=== PATIENT | male | born 1970 | race Caucasian/White ===

== ENCOUNTER 2017-12-26 15:41 | Emergency (ER) | payer OTHER ==
[2017-12-26] MEDS ORDERED: MORPHINE 4 MG/ML SYR ONE (16:27)
[2017-12-26] MEDS ORDERED: NA CHLORIDE 0.9% 1,000 ML ONE (16:27)
[2017-12-26] MEDS ORDERED: ONDANSETRON 4 MG/2 ML VIAL ONE (16:27)
[2017-12-26 16:41] LABS: Absolute Lymphocytes (CBC) 2.8 K/uL (0.7-4.9); Absolute Monocytes 0.9 K/uL (0.1-1.3); Absolute Neutrophil 4.2 K/uL (1.8-8.0); Basophils % 0.7 % (0-1.3); Eosinophils % 2.4 % (0-4.4); Hematocrit 47.4 % (39.6-49.0); Lymphocytes % 34.2 % (15.3-44.8); MCH 29.1 pg (27.0-35.0); MCV 84.3 fL (80-100); MPV 9.2 fL (7.6-11.3); Monocytes % 11.3 % (3.3-12.3); RBC Red Blood Cell Count 5.62 M/uL (4.33-5.43)
[2017-12-26 16:57] LABS: ALT/SGPT 40 U/L (12-78); AST/SGOT 17 U/L (15-37); Albumin 3.9 g/dL (3.4-5.0); Alkaline Phosphatase 40 U/L (45-117); BUN Blood Urea Nitrogen 14 mg/dL (7-18); Bicarbonate 25 mmol/L (21-32); Bilirubin Direct 0.1 mg/dL (0-0.2); Bilirubin Total 0.4 mg/dL (0.2-1.0); Glucose Level 83 mg/dL (74-106); Lipase 130 U/L (73-393); Potassium 3.9 mmol/L (3.5-5.1); Protein, Total 7.8 g/dL (6.4-8.2); Sodium Level 138 mmol/L (136-145)
[2017-12-26 17:33] LABS: Blood Morphology Comment NOT SEEN (NOT SEEN); Platelet Estimate ADEQ; Urine White Blood Cell Casts OK
[2017-12-26] MEDS ORDERED: MEPERIDINE HCL 25 MG/0.5 ML ONE (17:35)
--- NOTE | 2017-12-26 18:00 | RAD REPORT ---
EXAM DESCRIPTION: CTAbdomen Pelvis W Contrast - 12/26/2017 5:43 pm CLINICAL HISTORY: Abdominal pain. ABD PAIN COMPARISON: No comparisons TECHNIQUE: Biphasic CT imaging of the abdomen and pelvis was performed with 100 ml non-ionic IV cont rast. All CT scans are performed using dose optimization technique as appropriate and may include automated exposure control or mA/KV adjustment according to patient size. FINDINGS: The lung bases are clear. The liver, spleen, pancreas, adrenal glands and right kidney are within normal limits. The left kidne y contains a 7 mm upper pole cyst or caliceal diverticulum containing a calcification dependently. No bowel obstruction, free air, free fluid or abscess. Mild mucosal thickening is seen involving the left colon including the retrosigmoid colon most likely representing mild colitis. The appendix is no rmal. No evidence of significant lymphadenopathy. No suspicious bony findings. IMPRESSION: Mild descending and retrosigmoid colitis is suspected. 7 mm left renal caliceal diverticulum versus cyst as detailed.
--- NOTE | 2017-12-26 18:33 | EDPHYS ---
Physician Documentation [facility] Name: Sunday Pruitt Age: 47 yrs Sex: Male : 1970 Arrival Date: 12/26/2017 Time: 15:45 Bed External Waiting Private MD: ED Physician Arden Baumann HPI: 12/26 16:27 This 47 yrs old Male presents to ER via Wheelchair with complaints of jr8 Abdominal Pain. 16:27 The patient presents with abdominal pain in the right upper quadrant, right lower jr8 quadrant. Onset: The symptoms/episode began/occurred acutely, 2 day(s) ago, and became worse and became persistent. The symptoms do not radiate. Associated signs and symptoms: Pertinent positives: constipation, nausea. The symptoms are described as sharp. Modifying factors: The symptoms are alleviated by nothing, the symptoms are aggravated by nothing. Severity of pain: At its worst the pain was moderate in the emergency department the pain is unchanged. The patient has not experienced similar symptoms in the past. The patient has been recently seen by a physician: the patient's primary care provider. sent for further evaluation of abdominal pain . Historical: - Allergies: 16:00 PENICILLINS; sv - Home Meds: 16:00 Zantac Oral [Active]; ibuprofen 800 mg Oral tab daily [Active]; unk HTN med [Active]; sv - PMHx: 16:00 Hypertension; sv - PSHx: 16:00 left knee; Tonsillectomy; sv - Immunization history:: Adult Immunizations up to date. - Social history:: Smoking status: Patient uses tobacco products, denies chronic smoking, but will smoke occasionally, Patient uses alcohol, occasionally. - Ebola Screening: : No symptoms or risks identified at this time. ROS: 16:27 Eyes: Negative for injury, pain, redness, and discharge, ENT: Negative for injury, jr8 pain, and discharge, Neck: Negative for injury, pain, and swelling, Cardiovascular: Negative for chest pain, palpitations, and edema, Respiratory: Negative for shortness of breath, cough, wheezing, and pleuritic chest pain, Back: Negative for injury and pain, MS/Extremity: Negative for injury and deformity, Skin: Negative for injury, rash, and discoloration, Neuro: Negative for headache, weakness, numbness, tingling, and seizure. 16:27 Abdomen/GI: Positive for abdominal pain, nausea, constipation, Negative for vomiting, diarrhea, abdominal cramps, abdominal distension, anorexia, dysphagia, hematemesis, black/tarry stool, rectal pain, rectal bleeding, bowel incontinence, flatulence. Exam: 16:27 Eyes: Pupils equal round and reactive to light, extra-ocular motions intact. Lids and jr8 lashes normal. Conjunctiva and sclera are non-icteric and not injected. Cornea within normal limits. Periorbital areas with no swelling, redness, or edema. ENT: Nares patent. No nasal discharge, no septal abnormalities noted. Tympanic membranes are normal and external auditory canals are clear. Oropharynx with no redness, swelling, or masses, exudates, or evidence of obstruction, uvula midline. Mucous membranes moist. Neck: Trachea midline, no thyromegaly or masses palpated, and no cervical lymphadenopathy. Supple, full range of motion without nuchal rigidity, or vertebral point tenderness. No Meningismus. Cardiovascular: Regular rate and rhythm with a normal S1 and S2. No gallops, murmurs, or rubs. Normal PMI, no JVD. No pulse deficits. Respiratory: Lungs have equal breath sounds bilaterally, clear to auscultation and percussion. No rales, rhonchi or wheezes noted. No increased work of breathing, no retractions or nasal flaring. Back: No spinal tenderness. No costovertebral tenderness. Full range of motion. Skin: Warm, dry with normal turgor. Normal color with no rashes, no lesions, and no evidence of cellulitis. MS/ Extremity: Pulses equal, no cyanosis. Neurovascular intact. Full, normal range of motion. Neuro: Awake and alert, GCS 15, oriented to person, place, time, and situation. Cranial nerves II-XII grossly intact. Motor strength 5/5 in all extremities. Sensory grossly intact. Cerebellar exam normal. Normal gait. 16:27 Abdomen/GI: Inspection: obese Bowel sounds: active, all quadrants, Palpation: soft, in all quadrants, moderate abdominal tenderness, in the right upper quadrant and right lower quadrant, mass, is not appreciated, rebound tenderness, is not appreciated, voluntary guarding, is not appreciated, involuntary guarding, is not appreciated, no appreciated organomegaly, Indicators: McBurney's point is tender, Rosa's sign is negative, Rovsing's sign is negative, Obturator sign is negative, Psoas sign is negative, Liver: no appreciated palpable abnormalities, tenderness, is not appreciated. Vital Signs: 15:49 BP 144 / 89; Pulse 77; Resp 20; Temp 97.8; Pulse Ox 98% ; Weight 106.59 kg; Height 6 sv ft. 2 in. (187.96 cm); Pain 4/10; 16:45 BP 147 / 92; Pulse 66; Resp 16; Pulse Ox 96% on R/A; sv 16:45 Pain 2/10; sv 17:55 BP 123 / 91; Pulse 64; Resp 18; Pulse Ox 97% ; sv 19:00 BP 126 / 92; Pulse 66; Resp 16; Pulse Ox 99% ; bp 15:49 Body Mass Index 30.17 (106.59 kg, 187.96 cm) sv MDM: 15:53 Patient medically screened. jr8 18:32 Data reviewed: vital signs, nurses notes, lab test result(s), radiologic studies, CT jr8 scan, and as a result, I will discharge patient. Data interpreted: Pulse oximetry: on room air is 97 %. Interpretation: normal. Counseling: I had a detailed discussion with the patient and/or guardian regarding: the historical points, exam findings, and any diagnostic results supporting the discharge/admit diagnosis, lab results, radiology results, the need for outpatient follow up, a global safety officer, to return to the emergency department if symptoms worsen or persist or if there are any questions or concerns that arise at home. Response to treatment: the patient's symptoms have markedly improved after treatment. 12/26 15:59 Order name: Basic Metabolic Panel; Complete Time: 17:12 12/26 15:59 Order name: CBC with Diff; Complete Time: 17:36 12/26 15:59 Order name: Creatinine for Radiology; Complete Time: 16:55 12/26 15:59 Order name: Hepatic Function; Complete Time: 17:12 12/26 15:59 Order name: Lipase; Complete Time: 17:12 12/26 16:43 Order name: CBC Smear Scan; Complete Time: 17:36 EDPR 12/26 15:59 Order name: IV Saline Lock; Complete Time: 16:20 12/26 16:16 Order name: CT Abd/Pelvis - W/Contrast; Complete Time: 18:02 jr8 12/26 15:59 Order name: Labs collected and sent; Complete Time: 16:20 8 Administered Medications: 16:30 Drug: Zofran 4 mg Route: IVP; Site: right antecubital; sv 16:45 Follow up: Response: No adverse reaction sv 16:30 Drug: NS 0.9% 1000 ml Route: IV; Rate: 1000 ml; Site: right antecubital; sv 17:17 Follow up: IV SiteChange: left antecubital; IV SiteChange Reason: Infiltration sv 16:32 Drug: morphine 4 mg Route: IVP; Site: right antecubital; sv 16:45 Follow up: Pain 2/10 Adult; Response: No adverse reaction sv 17:34 Drug: Demerol 25 mg Route: IVP; Site: left antecubital; sv 19:03 Drug: Cipro 400 mg Volume: 200 ml; Route: IVPB; Infused Over: 60 mins; Site: left sg antecubital; 19:04 Drug: Flagyl 500 mg Volume: 100 ml; Route: IVPB; Rate: 200 ml/hr; Infused Over: 30 sg mins; Site: left antecubital; Disposition: 12/27 07:16 Co-signature as Attending Physician, Arden Baumann MD I agree with the assessment and walter plan of care. Disposition: 12/26/17 18:33 Discharged to Home. Impression: Colitis, Abdominal and pelvic pain. - Condition is Stable. - Discharge Instructions: Abdominal Pain, Adult, Colitis. - Prescriptions for Cipro 500 mg Oral Tablet - take 1 tablet by ORAL route every 12 hours for 10 days; 20 tablet. Flagyl 500 mg Oral Tablet - take 1 tablet by ORAL route every 6 hours for 10 days; 40 tablet. Tylenol- Codeine #3 300-30 mg Oral Tablet - take 2 tablet by ORAL route every 6 hours As needed; 30 tablet. promethazine 25 mg Oral Tablet - take 1 tablet by ORAL route every 6 hours As needed; 20 tablet. - Medication Reconciliation Form, Thank You Letter, Antibiotic Education, Prescription Opioid Use form. - Follow up: Devante Tyler MD; When: 1 week; Reason: Recheck today's complaints, Continuance of care, Re-evaluation by your physician. - Problem is new. - Symptoms have improved. Signatures: Dispatcher [employer] Olga Prince, RN José Miguel Carter, Yumiko Junior RN, RN RN aj Anderson, Corey, MD MD cha Roszak, Josh, PA PA jr8 Corrections: (The following items were deleted from the chart) 12/26 18:33 18:33 12/26/2017 18:33 Discharged to Home. Impression: Colitis. Condition is Stable. jr8 Forms are Medication Reconciliation Form, Thank You Letter, Antibiotic Education, Prescription Opioid Use. Follow up: Devante Tyler; When: 1 week; Reason: Recheck today's complaints, Continuance of care, Re-evaluation by your physician. Problem is new. Symptoms have improved. jr8 21:09 18:33 12/26/2017 18:33 Discharged to Home. Impression: Colitis; Abdominal and pelvic aj pain. Condition is Stable. Forms are Medication Reconciliation Form, Thank You Letter, Antibiotic Education, Prescription Opioid Use. Follow up: Devante Tyler; When: 1 week; Reason: Recheck today's complaints, Continuance of care, Re-evaluation by your physician. Problem is new. Symptoms have improved. jr8
--- NOTE | 2017-12-26 18:33 | ER ---
Nurse's Notes [facility] Name: Sunday Pruitt Age: 47 yrs Sex: Male : 1970 Arrival Date: 12/26/2017 Time: 15:45 Bed External Waiting Private MD: Diagnosis: Colitis;Abdominal and pelvic pain Presentation: 12/26 15:45 Presenting complaint: Patient states: sent by Dr Roman's office to r/o appy. Pt c/o sv RUQ, RLQ and mid abdominal pain. Pt hasn't had a BM x 3 days, has been taking Dulcolax. c/o nausea on Tuesday, took zofran and was relieved. Transition of care: patient was received from another setting of care (ambulatory primary care physician practice), Dr Roman. Onset of symptoms was December 23, 2017. Risk Assessment: Do you want to hurt yourself or someone else? Patient reports no desire to harm self or others. Initial Sepsis Screen: Does the patient meet any 2 criteria? No. Patient's initial sepsis screen is negative. Does the patient have a suspected source of infection? No. Patient's initial sepsis screen is negative. Care prior to arrival: None. 15:45 Method Of Arrival: Wheelchair sv 15:45 Acuity: MARILU 3 sv Triage Assessment: 15:45 General: Appears uncomfortable, well developed, Behavior is cooperative, restless. sv Pain: Complains of pain in umbilical area, right upper quadrant and right lower quadrant Pain currently is 4 out of 10 on a pain scale. Quality of pain is described as pressure, Pain began 2-3 days ago. Is continuous, Also complains of nausea. EENT: No signs and/or symptoms were reported regarding the EENT system. Neuro: Level of Consciousness is awake, alert, obeys commands, Oriented to person, place, time, situation, Moves all extremities. Full function Gait is steady, Speech is normal. Cardiovascular: Patient's skin is warm and dry. Respiratory: Respiratory effort is even, unlabored, Respiratory pattern is regular, symmetrical. GI: Abdomen is round Abdomen is tender to palpation in umbilical area, right upper quadrant and right lower quadrant Reports constipation, nausea. : No signs and/or symptoms were reported regarding the genitourinary system. Derm: Skin is pink, warm \T\ dry. Musculoskeletal: No signs and/or symptoms reported regarding the musculoskeletal system. Historical: - Allergies: 16:00 PENICILLINS; sv - Home Meds: 16:00 Zantac Oral [Active]; ibuprofen 800 mg Oral tab daily [Active]; unk HTN med [Active]; sv - PMHx: 16:00 Hypertension; sv - PSHx: 16:00 left knee; Tonsillectomy; sv - Immunization history:: Adult Immunizations up to date. - Social history:: Smoking status: Patient uses tobacco products, denies chronic smoking, but will smoke occasionally, Patient uses alcohol, occasionally. - Ebola Screening: : No symptoms or risks identified at this time. Screenin:45 Abuse screen: Denies threats or abuse. Denies injuries from another. Nutritional sv screening: No deficits noted. Tuberculosis screening: No symptoms or risk factors identified. Fall Risk None identified. Assessment: 16:30 Reassessment: Patient appears in no apparent distress at this time. No changes from sv previously documented assessment. Patient and/or family updated on plan of care and expected duration. Pain level reassessed. Patient is alert, oriented x 3, equal unlabored respirations, skin warm/dry/pink. 17:34 Reassessment: Patient appears in no apparent distress at this time. Patient and/or sv family updated on plan of care and expected duration. Pain level reassessed. Patient is alert, oriented x 3, equal unlabored respirations, skin warm/dry/pink. Patient states symptoms have not improved. 17:55 Reassessment: Patient appears in no apparent distress at this time. No changes from sv previously documented assessment. Patient and/or family updated on plan of care and expected duration. Pain level reassessed. Patient is alert, oriented x 3, equal unlabored respirations, skin warm/dry/pink. 19:00 Reassessment: RECD REPORT FROM TOM CEJA. 47YO WM P/W ABD PAIN, SENT BY PCP FOR R/O APPY. bp PT TBDC WITH DX OF COLITIS AFTER ABX INFUSION. VS STABLE ON MONITOR. 20:07 Reassessment: Patient appears in no apparent distress at this time. Patient and/or tl2 family updated on plan of care and expected duration. Pain level reassessed. Patient is alert, oriented x 3, equal unlabored respirations, skin warm/dry/pink. Pt verbalized understanding of discharge instructions, need for follow up and prescription usage. Vital Signs: 15:49 BP 144 / 89; Pulse 77; Resp 20; Temp 97.8; Pulse Ox 98% ; Weight 106.59 kg; Height 6 sv ft. 2 in. (187.96 cm); Pain 4/10; 16:45 BP 147 / 92; Pulse 66; Resp 16; Pulse Ox 96% on R/A; sv 16:45 Pain 2/10; sv 17:55 BP 123 / 91; Pulse 64; Resp 18; Pulse Ox 97% ; sv 19:00 BP 126 / 92; Pulse 66; Resp 16; Pulse Ox 99% ; bp 15:49 Body Mass Index 30.17 (106.59 kg, 187.96 cm) sv ED Course: 15:45 Patient arrived in ED. bd 15:53 Simon Faith PA is PHCP. jr8 15:53 Arden Baumann MD is Attending Physician. jr8 15:54 Olga Espinosa RN is Primary Nurse. sv 15:58 Triage completed. sv 16:01 Arm band placed on right wrist. sv 16:01 Patient has correct armband on for positive identification. Placed in gown. Bed in low sv position. Call light in reach. Pulse ox on. NIBP on. Door closed. Head of bed elevated. 16:05 Initial lab(s) drawn, by me, sent to lab. Inserted saline lock: 20 gauge in right sv antecubital area, using aseptic technique. ,using aseptic technique. done by José Miguel CEJA Blood collected. 17:18 Inserted saline lock: 20 gauge in left antecubital area, using aseptic technique. sv Flushed left antecubital with 5 ml normal saline IV discontinued, intact, bleeding controlled, No redness/swelling at site. Pressure dressing applied, to the right AC d/t infiltration. 17:[address] via wheelchair. sv 17:[address] via wheelchair. sw 17:43 CT completed. Patient tolerated procedure well. Patient moved back from CT. sw 17:43 CT Abd/Pelvis - W/Contrast In Process Unspecified. EDMS 18:32 Devante Tyler MD is Referral Physician. jr8 19:35 Primary Nurse role handed off by Olga Espinosa, BRENNA sv 20:07 No provider procedures requiring assistance completed. IV discontinued, intact, tl2 bleeding controlled, No redness/swelling at site. Pressure dressing applied. Administered Medications: 16:30 Drug: Zofran 4 mg Route: IVP; Site: right antecubital; sv 16:45 Follow up: Response: No adverse reaction sv 16:30 Drug: NS 0.9% 1000 ml Route: IV; Rate: 1000 ml; Site: right antecubital; sv 17:17 Follow up: IV SiteChange: left antecubital; IV SiteChange Reason: Infiltration sv 16:32 Drug: morphine 4 mg Route: IVP; Site: right antecubital; sv 16:45 Follow up: Pain 2/10 Adult; Response: No adverse reaction sv 17:34 Drug: Demerol 25 mg Route: IVP; Site: left antecubital; sv 19:03 Drug: Cipro 400 mg Volume: 200 ml; Route: IVPB; Infused Over: 60 mins; Site: left sg antecubital; 19:04 Drug: Flagyl 500 mg Volume: 100 ml; Route: IVPB; Rate: 200 ml/hr; Infused Over: 30 sg mins; Site: left antecubital; Outcome: 18:33 Discharge ordered by . jr8 20:07 Discharged to home ambulatory, with family. tl2 20:07 Condition: stable 20:07 Discharge instructions given to patient, family, Instructed on discharge instructions, follow up and referral plans. medication usage, Demonstrated understanding of instructions, follow-up care, medications, Prescriptions given X 4. 21:09 Patient left the ED. lyudmila Signatures: Dispatcher [employer] EDMS Caitlin Vazquez Stephanie, RN RN sv Gay, Steven, RN RN sg Myers, Amanda, RN RN aj Roszak, Josh, PA PA jr8 Jayna Corona Taylor, RN RN tl2 Migel Pollard RN BRENNA bp
[2017-12-26] MEDS ORDERED: METRONIDAZOLE 500mg IVPB 500 MG/100 ML BAG IV ONE (18:58)
[2017-12-26] MEDS ORDERED: CIPROFLOXACIN 400mg IV 400 MG/200 ML BAG IV ONE (18:58)
== END 2017-12-26 21:09 | disposition home or self-care (01) ==
LOC: ER 15:41
DX: K52.9 Noninfective gastroenteritis and colitis, unspecified (principal); I10 Essential (primary) hypertension; Z72.0 Tobacco use; Z88.0 Allergy status to penicillin
CPT/HCPCS: 36415; 74177; 80048; 80076; 83690; 85025; 99284; J0744; J2175; J2405; J7030; Q9967

== ENCOUNTER 2017-12-28 04:31 | Inpatient (IN) | payer OTHER, SELFPAY ==
[2017-12-28] MEDS ORDERED: NA CHLORIDE 0.9% 1,000 ML ONE (04:53)
[2017-12-28] MEDS ORDERED: ONDANSETRON 4 MG/2 ML VIAL ONE (04:54)
[2017-12-28] MEDS ORDERED: KETOROLAC 30 MG/ML INJ ONE (04:55)
[2017-12-28] MEDS ORDERED: MORPHINE 4 MG/ML SYR ONE (04:55)
[2017-12-28 05:10] LABS: Absolute Lymphocytes (CBC) 1.8 K/uL (0.7-4.9); Absolute Monocytes 0.6 K/uL (0.1-1.3); Absolute Neutrophil 4.1 K/uL (1.8-8.0); Basophils % 1.1 % (0-1.3); Eosinophils % 3.5 % (0-4.4); Hematocrit 43.3 % (39.6-49.0); Lymphocytes % 26.1 % (15.3-44.8); MCH 29.6 pg (27.0-35.0); MCV 83.5 fL (80-100); MPV 9.1 fL (7.6-11.3); Monocytes % 8.7 % (3.3-12.3); RBC Red Blood Cell Count 5.18 M/uL (4.33-5.43)
[2017-12-28 05:51] LABS: ALT/SGPT 35 U/L (12-78); AST/SGOT 16 U/L (15-37); Albumin 3.2 g/dL (3.4-5.0); Alkaline Phosphatase 35 U/L (45-117); BUN Blood Urea Nitrogen 18 mg/dL (7-18); Bicarbonate 25 mmol/L (21-32); Bilirubin Direct 0.1 mg/dL (0-0.2); Bilirubin Total 0.4 mg/dL (0.2-1.0); Glucose Level 96 mg/dL (74-106); Lipase 173 U/L (73-393); Potassium 3.8 mmol/L (3.5-5.1); Protein, Total 6.5 g/dL (6.4-8.2); Sodium Level 140 mmol/L (136-145)
[2017-12-28] MEDS ORDERED: FENTANYL CITR 100 MCG/2 ML ONE (06:34)
[2017-12-28 06:41] LABS: Urine Blood NEGATIVE (NEG); Urine Glucose NEGATIVE (NEG); Urine Protein 1+ (NEG); Urine Specific Gravity 1.025 (1.005-1.030); Urine pH 6.5 (5.0-7.0)
[2017-12-28] MEDS ORDERED: METRONIDAZOLE 500mg IVPB 500 MG/100 ML BAG IV ONE (06:41)
[2017-12-28] MEDS ORDERED: Levofloxacin500mg IV 500 MG/100 ML BAG IV ONE (06:41)
--- NOTE | 2017-12-28 06:45 | ER ---
Nurse's Notes [facility] Name: Sunday Pruitt Age: 47 yrs Sex: Male : 1970 Arrival Date: 12/28/2017 Time: 04:32 Bed 15 Private MD: Migel Roman Diagnosis: Acute Abdominal Pain;Acute Proctocolitis Presentation: 12/28 04:42 Presenting complaint: Patient states: I was here on Tuesday with abdominal pain and CT ao shows colitis. This morning I woke up with stabbing pain that is worst. Patient denies having BM yesterday. Transition of care: patient was not received from another setting of care. Onset of symptoms was December 28, 2017 at 04:00. Risk Assessment: Do you want to hurt yourself or someone else? Patient reports no desire to harm self or others. Initial Sepsis Screen: Does the patient meet any 2 criteria? No. Patient's initial sepsis screen is negative. Does the patient have a suspected source of infection? No. Patient's initial sepsis screen is negative. Care prior to arrival: None. 04:42 Method Of Arrival: Ambulatory ao 04:42 Acuity: MARILU 3 ao Historical: - Allergies: 04:47 PENICILLINS; ao - Home Meds: 04:47 ibuprofen 800 mg Oral tab daily [Active]; unk HTN med [Active]; Zantac Oral [Active]; ao Flagyl Oral [Active]; Cipro Oral [Active]; Tylenol #3 Oral [Active]; Phenergan Oral [Active]; - PMHx: 04:47 Hypertension; ao - PSHx: 04:47 Knee surgery; ao - Immunization history:: Adult Immunizations up to date. - Social history:: Smoking status: Patient uses tobacco products, smokes one-half pack cigarettes per day, Patient uses alcohol, occasionally. Patient/guardian denies using street drugs. - Ebola Screening: : Patient negative for fever greater than or equal to 101.5 degrees Fahrenheit, and additional compatible Ebola Virus Disease symptoms Patient denies exposure to infectious person Patient denies travel to an Ebola-affected area in the 21 days before illness onset. - Family history:: not pertinent. - Hospitalizations: : No recent hospitalization is reported. Screenin:57 Abuse screen: Denies threats or abuse. Nutritional screening: No deficits noted. tl2 Tuberculosis screening: No symptoms or risk factors identified. Fall Risk None identified. Assessment: 05:00 General: Appears in no apparent distress. uncomfortable, Behavior is calm, cooperative, ao appropriate for age. Pain: Complains of pain in abdomen Pain currently is 10 out of 10 on a pain scale. Neuro: Level of Consciousness is awake, alert, obeys commands, Oriented to person, place, time, situation, Appropriate for age Moves all extremities. Full function Speech is normal, Facial symmetry appears normal. Cardiovascular: Capillary refill < 3 seconds Patient's skin is warm and dry. Respiratory: Airway is patent Respiratory effort is even, unlabored, Respiratory pattern is regular, symmetrical. GI: Bowel sounds present X 4 quads. Abd is soft and non tender X 4 quads. Reports lower abdominal pain, Pain is 10 out of 10 on a pain scale. : No signs and/or symptoms were reported regarding the genitourinary system. EENT: No signs and/or symptoms were reported regarding the EENT system. Derm: Skin is intact, Skin is pink, warm \\T\\ dry. normal, Skin temperature is warm. Musculoskeletal: Circulation, motion, and sensation intact. Range of motion:. 06:03 Reassessment: Patient appears in no apparent distress at this time. Patient and/or ao family updated on plan of care and expected duration. Pain level reassessed. Patient is alert, oriented x 3, equal unlabored respirations, skin warm/dry/pink. Patient back from CT. 06:45 Reassessment: [phone] August patient's . ao 08:03 Reassessment: Patient appears in no apparent distress at this time. Patient and/or ph family updated on plan of care and expected duration. Pain level reassessed. Patient is alert, oriented x 3, equal unlabored respirations, skin warm/dry/pink. Pt resting quietly, states, "The pain is finally under control." Denies nausea, awaiting room assignment. 09:12 Reassessment: Patient appears in no apparent distress at this time. Patient and/or ph family updated on plan of care and expected duration. Pain level reassessed. Pt asleeep, respirations even and unlabored, report called to Solange CEJA, pt waiting to be taken to 2nd floor. Vital Signs: 04:44 BP 126 / 75; Pulse 61; Resp 22; Temp 97.1(TE); Pulse Ox 100% on R/A; Weight 106.59 kg ao (R); Height 6 ft. 2 in. (187.96 cm) (R); Pain 10/10; 06:05 BP 116 / 76; Pulse 62; Resp 16; Pulse Ox 100% on R/A; ao 08:05 BP 107 / 74; Pulse 49; Resp 18; Pulse Ox 98% on R/A; ph 09:12 BP 107 / 74; Pulse 47; Resp 18; Pulse Ox 98% on R/A; ph 04:44 Body Mass Index 30.17 (106.59 kg, 187.96 cm) ao ED Course: 04:32 Patient arrived in ED. ds1 04:32 Migel Roman MD is Private Physician. ds1 04:41 Vince Trevino, BRENNA is Primary Nurse. ao 04:44 Triage completed. ao 04:44 Devante Lopez MD is Attending Physician. wa 04:47 Arm band placed on right wrist. Patient placed in an exam room, on a stretcher, on ao pulse oximetry, Patient notified of wait time. 04:56 Inserted saline lock: 20 gauge in left antecubital area, using aseptic technique. Blood tl2 collected. placed by dominga Lehman. 04:57 Patient has correct armband on for positive identification. Bed in low position. Call tl2 light in reach. Side rails up X 1. Adult w/ patient. 05:[address] via wheelchair. kw1 05:47 CT Abd/Pelvis - W/Contrast In Process Unspecified. EDMS 05:51 CT completed. Patient tolerated procedure well. Patient moved back from CT. kw1 06:43 Rafaela Holm MD is Hospitalizing Provider. wa 07:14 Report given to BRENNA Rivera. ao 07:22 Nicole Guzman RN is Primary Nurse. ph 08:47 No provider procedures requiring assistance completed. Patient admitted, IV remains in ph place. Administered Medications: 04:55 Drug: NS 0.9% 1000 ml Route: IV; Rate: 1 bolus; Site: left antecubital; tl2 06:33 Follow up: IV Status: Completed infusion ao 04:55 Drug: Zofran 4 mg Route: IVP; Site: left antecubital; tl2 06:33 Follow up: Response: No adverse reaction ao 04:55 Drug: TORadol 30 mg Route: IVP; Site: left antecubital; tl2 06:34 Follow up: Response: No adverse reaction ao 04:56 Drug: morphine 4 mg Route: IVP; Site: left antecubital; tl2 06:34 Follow up: Response: No adverse reaction ao 06:33 Drug: fentaNYL (PF) 75 mcg Route: IVP; Site: left antecubital; ao 07:15 Follow up: Response: No adverse reaction; Pain is decreased ph 06:42 Drug: LevaQUIN 500 mg Volume: 100 ml; Route: IVPB; Infused Over: 60 mins; Site: left ao antecubital; 08:00 Follow up: Response: No adverse reaction; IV Status: Completed infusion ph 06:42 Drug: Flagyl 500 mg Volume: 100 ml; Route: IVPB; Rate: 200 ml/hr; Infused Over: 30 ao mins; Site: left antecubital; 08:00 Follow up: Response: No adverse reaction; IV Status: Completed infusion ph Outcome: 06:44 Decision to Hospitalize by Provider. wa 09:13 Admitted to Med/surg accompanied by tech, via wheelchair, room 214, with chart, Report ph called to BRENNA Narvaez 09:13 Condition: good 09:23 Patient left the ED. ph Signatures: Dispatcher [employer] [facility] Vaz, Jennifer ds1 Nicole Guzman RN RN ph Ortiz, Alex, RN RN ao Knox, Taylor, RN RN tl2 Devante Lopez MD MD wa Wilhelm, Kimberly kw1 Corrections: (The following items were deleted from the chart) 06:05 06:00 General: Appears in no apparent distress. uncomfortable, Behavior is calm, ao cooperative, appropriate for age, ao 06:05 06:00 Pain: Complains of pain in abdomen Pain currently is 10 out of 10 on a pain ao scale. ao 06:05 06:00 Neuro: Level of Consciousness is awake, alert, obeys commands, Oriented to ao person, place, time, situation, Appropriate for age Moves all extremities. Full function Speech is normal, Facial symmetry appears normal, ao 06:05 06:00 Cardiovascular: Capillary refill < 3 seconds Patient's skin is warm and dry. ao ao 06:05 06:00 Respiratory: Airway is patent Respiratory effort is even, unlabored, Respiratory ao pattern is regular, symmetrical, ao 06: 06:00 GI: Bowel sounds present X 4 quads. Abd is soft and non tender X 4 quads. Reports ao lower abdominal pain, Pain is 10 out of 10 on a pain scale. ao : 06:00 : No signs and/or symptoms were reported regarding the genitourinary system. ao ao : 06:00 EENT: No signs and/or symptoms were reported regarding the EENT system. ao ao : 06:00 Derm: Skin is intact, Skin is pink, warm \\T\\ dry. normal, Skin temperature is warm ao ao : 06:00 Musculoskeletal: Circulation, motion, and sensation intact. Range of motion: ao ao
--- NOTE | 2017-12-28 06:45 | EDPHYS ---
Physician Documentation [facility] Name: Sunday Pruitt Age: 47 yrs Sex: Male : 1970 Arrival Date: 12/28/2017 Time: 04:32 Bed 15 Private MD: Migel Roman ED Physician Devante Lopez HPI: 12/28 05:09 This 47 yrs old Male presents to ER via Ambulatory with complaints of wa Abdominal Pain. 05:09 The patient presents with abdominal pain that is diffuse. Onset: The symptoms/episode wa began/occurred just prior to arrival. The symptoms do not radiate. Associated signs and symptoms: Pertinent negatives: diarrhea, dysuria, fever, shortness of breath, vomiting. The symptoms are described as achy. Modifying factors: The symptoms are alleviated by nothing, the symptoms are aggravated by nothing. Severity of pain: At its worst the pain was severe this morning, in the emergency department the pain is unchanged. The patient has not experienced similar symptoms in the past. The patient has been recently seen by a physician: seen here for same a couple days back. told has colitis. taking abx. Historical: - Allergies: 04:47 PENICILLINS; ao - Home Meds: 04:47 ibuprofen 800 mg Oral tab daily [Active]; unk HTN med [Active]; Zantac Oral [Active]; ao Flagyl Oral [Active]; Cipro Oral [Active]; Tylenol #3 Oral [Active]; Phenergan Oral [Active]; - PMHx: 04:47 Hypertension; ao - PSHx: 04:47 Knee surgery; ao - Immunization history:: Adult Immunizations up to date. - Social history:: Smoking status: Patient uses tobacco products, smokes one-half pack cigarettes per day, Patient uses alcohol, occasionally. Patient/guardian denies using street drugs. - Ebola Screening: : Patient negative for fever greater than or equal to 101.5 degrees Fahrenheit, and additional compatible Ebola Virus Disease symptoms Patient denies exposure to infectious person Patient denies travel to an Ebola-affected area in the 21 days before illness onset. - Family history:: not pertinent. - Hospitalizations: : No recent hospitalization is reported. ROS: 05:11 Constitutional: Negative for fever, chills, and weight loss, Eyes: Negative for injury, wa pain, redness, and discharge, ENT: Negative for injury, pain, and discharge, Neck: Negative for injury, pain, and swelling, Cardiovascular: Negative for chest pain, palpitations, and edema, Respiratory: Negative for shortness of breath, cough, wheezing, and pleuritic chest pain, Back: Negative for injury and pain, : Negative for injury, bleeding, discharge, and swelling, MS/Extremity: Negative for injury and deformity, Skin: Negative for injury, rash, and discoloration, Neuro: Negative for headache, weakness, numbness, tingling, and seizure. 05:11 Abdomen/GI: Positive for abdominal pain, Negative for vomiting, diarrhea. 05:11 All other systems are negative. Exam: 05:11 Constitutional: This is a well developed, well nourished patient who is awake, alert, wa and in no acute distress. Head/Face: Normocephalic, atraumatic. Eyes: Pupils equal round and reactive to light, extra-ocular motions intact. Lids and lashes normal. Conjunctiva and sclera are non-icteric and not injected. Cornea within normal limits. Periorbital areas with no swelling, redness, or edema. ENT: Nares patent. No nasal discharge, no septal abnormalities noted. Tympanic membranes are normal and external auditory canals are clear. Oropharynx with no redness, swelling, or masses, exudates, or evidence of obstruction, uvula midline. Mucous membranes moist. Neck: Trachea midline, no thyromegaly or masses palpated, and no cervical lymphadenopathy. Supple, full range of motion without nuchal rigidity, or vertebral point tenderness. No Meningismus. Chest/axilla: Normal chest wall appearance and motion. Nontender with no deformity. No lesions are appreciated. Cardiovascular: Regular rate and rhythm with a normal S1 and S2. No gallops, murmurs, or rubs. Normal PMI, no JVD. No pulse deficits. Respiratory: Lungs have equal breath sounds bilaterally, clear to auscultation and percussion. No rales, rhonchi or wheezes noted. No increased work of breathing, no retractions or nasal flaring. Back: No spinal tenderness. No costovertebral tenderness. Full range of motion. Skin: Warm, dry with normal turgor. Normal color with no rashes, no lesions, and no evidence of cellulitis. MS/ Extremity: Pulses equal, no cyanosis. Neurovascular intact. Full, normal range of motion. Neuro: Awake and alert, GCS 15, oriented to person, place, time, and situation. Cranial nerves II-XII grossly intact. Motor strength 5/5 in all extremities. Sensory grossly intact. Cerebellar exam normal. Normal gait. Psych: Awake, alert, with orientation to person, place and time. Behavior, mood, and affect are within normal limits. 05:11 Abdomen/GI: Inspection: abdomen appears normal, Bowel sounds: normal, in all quadrants, Palpation: soft, in all quadrants, severe abdominal tenderness, in the diffuse, no appreciated organomegaly. Vital Signs: 04:44 BP 126 / 75; Pulse 61; Resp 22; Temp 97.1(TE); Pulse Ox 100% on R/A; Weight 106.59 kg ao (R); Height 6 ft. 2 in. (187.96 cm) (R); Pain 10/10; 06:05 BP 116 / 76; Pulse 62; Resp 16; Pulse Ox 100% on R/A; ao 08:05 BP 107 / 74; Pulse 49; Resp 18; Pulse Ox 98% on R/A; ph 09:12 BP 107 / 74; Pulse 47; Resp 18; Pulse Ox 98% on R/A; ph 04:44 Body Mass Index 30.17 (106.59 kg, 187.96 cm) ao MDM: 04:44 Patient medically screened. wv 05:13 Differential diagnosis: bowel obstruction, cholecystitis, Cholelithiasis, gastritis, wv non-specific abd pain, pancreatitis, Ureterolithiasis, urinary tract infection. 06:40 Data reviewed: vital signs, nurses notes, lab test result(s). Test interpretation: by wv ED physician or midlevel provider: labs noted and wnl. . 06:40 Test interpretation: by ED physician or midlevel provider: CT abd/pelvis: wv proctocolitis. Response to treatment: the patient's symptoms have markedly improved after treatment. Physician consultation: Rafaela Holm MD. Admission orders: after a detailed discussion of the patient's condition and case, the admit orders are written by me. ED course: pt failed out pt tx with worsening pain. will admit and consult GI. 12/28 04:47 Order name: Basic Metabolic Panel; Complete Time: 06:09 wv 12/28 04:47 Order name: CBC with Diff; Complete Time: 06:09 wv 12/28 04:47 Order name: Creatinine for Radiology; Complete Time: 06:09 wv 12/28 04:47 Order name: Hepatic Function; Complete Time: 06:09 wv 12/28 04:47 Order name: Lipase; Complete Time: 06:28 wv 12/28 04:47 Order name: Urine Microscopic Only 12/28 04:47 Order name: CT Abd/Pelvis - W/Contrast wv 12/28 06:23 Order name: Urine Dipstick--Ancillary (enter results) [facility] 12/28 04:47 Order name: IV Saline Lock; Complete Time: 04:56 wv 12/28 04:47 Order name: Labs collected and sent; Complete Time: 04:56 wv 12/28 04:47 Order name: Urine Dipstick-Ancillary (obtain specimen); Complete Time: 06:14 wv Administered Medications: 04:55 Drug: NS 0.9% 1000 ml Route: IV; Rate: 1 bolus; Site: left antecubital; tl2 06:33 Follow up: IV Status: Completed infusion ao 04:55 Drug: Zofran 4 mg Route: IVP; Site: left antecubital; tl2 06:33 Follow up: Response: No adverse reaction ao 04:55 Drug: TORadol 30 mg Route: IVP; Site: left antecubital; tl2 06:34 Follow up: Response: No adverse reaction ao 04:56 Drug: morphine 4 mg Route: IVP; Site: left antecubital; tl2 06:34 Follow up: Response: No adverse reaction ao 06:33 Drug: fentaNYL (PF) 75 mcg Route: IVP; Site: left antecubital; ao 07:15 Follow up: Response: No adverse reaction; Pain is decreased ph 06:42 Drug: LevaQUIN 500 mg Volume: 100 ml; Route: IVPB; Infused Over: 60 mins; Site: left ao antecubital; 08:00 Follow up: Response: No adverse reaction; IV Status: Completed infusion ph 06:42 Drug: Flagyl 500 mg Volume: 100 ml; Route: IVPB; Rate: 200 ml/hr; Infused Over: 30 ao mins; Site: left antecubital; 08:00 Follow up: Response: No adverse reaction; IV Status: Completed infusion ph Disposition: 08/01/18 06:44 Hospitalization ordered by Rafaela Holm for Inpatient Admission. Preliminary diagnosis are Acute Abdominal Pain, Acute Proctocolitis. - Bed requested for Telemetry/MedSurg (Inpatient). - Status is Inpatient Admission. ph - Condition is Stable. - Problem is new. - Symptoms have improved. UTI on Admission? No Signatures: Dispatcher [employer] EDMS Nicole Guzman RN RN Vince Trevino RN RN ao Sheryl Guillen RN RN tl2 Devante Lopez MD MD wa Botello, Elizabeth eb Corrections: (The following items were deleted from the chart) 06:52 06:44 Hospitalization Ordered by Rafaela Holm MD for Inpatient Admission. Preliminary eb diagnosis is Acute Abdominal Pain; Acute Proctocolitis. Bed requested for Telemetry/MedSurg (Inpatient). Status is Inpatient Admission. Condition is Stable. Problem is new. Symptoms have improved. UTI on Admission? No. wv 08:26 06:52 12/28/2017 06:44 Hospitalization Ordered by Rafaela Holm MD for Inpatient tl2 Admission. Preliminary diagnosis is Acute Abdominal Pain; Acute Proctocolitis. Bed requested for Telemetry/MedSurg (Inpatient). Status is Inpatient Admission. Condition is Stable. Problem is new. Symptoms have improved. UTI on Admission? No. eb 09:23 08:26 12/28/2017 06:44 Hospitalization Ordered by Rafaela Holm MD for Inpatient ph Admission. Preliminary diagnosis is Acute Abdominal Pain; Acute Proctocolitis. Bed requested for Telemetry/MedSurg (Inpatient). Status is Inpatient Admission. Condition is Stable. Problem is new. Symptoms have improved. UTI on Admission? No. tl2
[2017-12-28 06:49] LABS: Urine Bacteria NONE SEEN /HPF (NONE SEEN); Urine Culture Reflex Order NOT NEEDED; Urine Mucus LIGHT /HPF (NONE SEEN); Urine RBC NONE SEEN /HPF (NONE SEEN)
[2017-12-28] MEDS ORDERED: ACETAMINOPHEN 500 MG TAB PO PRN (07:52)
--- NOTE | 2017-12-28 08:09 | RAD REPORT ---
EXAM DESCRIPTION: CTAbdomen Pelvis W Contrast - 12/28/2017 6:26 am CLINICAL HISTORY: Abdominal pain. ABD PAIN COMPARISON: Abdomen Pelvis W Contrast dated 12/26/2017 TECHNIQUE: Biphasic CT imaging of the abdomen and pelvis was performed with 100 ml non-ionic IV cont rast. All CT scans are performed using dose optimization technique as appropriate and may include automated exposure control or mA/KV adjustment according to patient size. FINDINGS: The lung bases are clear. The liver, spleen, pancreas, adrenal glands and right kidney are within normal limits. 7 mm calyceal diverticulum with stone versus cyst is again noted left kidney, unchanged. No bowel obstruction, free air, free fluid or abscess. Previously noted thickening of the descending colon appears improved. Rectosigmoid colon thickening appears present, mild in severity. The appendix is normal. No evidence of significant lymphadenopathy. No suspicious bony findings. IMPRESSION: Mild proctitis is noted, with overall mild improvement since comparative study.
--- NOTE | 2017-12-28 08:25 | P.HP ---
Certification for Inpatient Patient admitted to: Inpatient With expected LOS: >2 Midnights Patient will require the following post-hospital care: None Practitioner: I am a practitioner with admitting privileges, knowledge of patient current condition, hospital course, and medical plan of care. Services: Services provided to patient in accordance with Admission requirements found in Title 42 Section 412.3 of the Code of Federal Regulations Patient History Date of Service: 12/28/17 Reason for admission: Abdominal pain History of Present Illness: Patient is a 47-year-old gentleman who presents to the hospital with abdominal pain. Patient was in the emergency room a few days ago with similar complaints. He was found have proctitis. He was started on IV antibiotics and discharged on oral antibiotics. However, since being at home in taking the oral antibiotics of patient's symptoms have not improved. He returned to the emergency room with severe abdominal pain. He has been dry heaving as well. In the emergency room, CT scan revealed proctitis. Patient will be admitted to the hospital for IV antibiotic therapy. Allergies Penicillins Allergy (Unverified 12/26/17 21:13) Unknown - Past Medical/Surgical History Past Medical History: Patient denies medical history Past Surgical History: Patient denies surgical history - Family History Father Family History: Reviewed- Non-Contributory - Social History Smoking Status: Never smoker Alcohol use: No CD- Drugs: No Review of Systems 10-point ROS is otherwise unremarkable Physical Examination - Vital Signs Temperature: 98 F Blood Pressure: 110/80 Pulse: 80 Respirations: 18 Pulse Ox (%): 96 - Physical Exam General: Alert, In no apparent distress, Oriented x3 HEENT: Atraumatic, Normocephalic, PERRLA Neck: Supple, 2+ carotid pulse no bruit, JVD not distended Respiratory: Clear to auscultation bilaterally, Normal air movement Cardiovascular: Regular rate/rhythm, Normal S1 S2, No murmurs Capillary refill: <2 Seconds Gastrointestinal: Normal bowel sounds, Hypoactive, Soft and benign, Non- distended, No tenderness Musculoskeletal: No clubbing, No swelling Integumentary: No rashes Neurological: Normal gait, Normal speech, Normal strength at 5/5 x4 extr, Normal tone, Sensation intact, Cranial nerves 3-12 intact - Studies Laboratory Data (last 24 hrs) 12/28/17 05:20: Creatinine 0.80 12/28/17 05:20: Sodium 140, Potassium 3.8, BUN 18, Creatinine 0.80, Glucose 96, Total Bilirubin 0.4, AST 16, ALT 35, Alkaline Phosphatase 35 L, Lipase 173 12/28/17 04:50: WBC 6.7 D, Hgb 15.3, Hct 43.3, Plt Count 219 Assessment & Plan - Problems (Diagnosis) (1) Proctitis Current Visit: Yes Status: Acute - Plan 1. Continue with IV hydration 2. Continue with IV antibiotics 3. Continue with pain control 4. NPO 5. GI & general surgery consultation; outpatient colonoscopy in 6-12 weeks 6. Serial H&H, and we will monitor CBC, BMP, LFTs and lipase along with electrolytes. 7. GI and DVT prophylaxis Discharge Plan: Home Plan to discharge in: Greater than 2 days - Advance Directives Does patient have a Living Will: No Does patient have a Durable POA for Healthcare: No - Code Status/Comfort Care Code Status Assessed: Yes Code Status: Full Code Critical Care: No Time Spent Managing PTS Care (In Minutes): 50
[2017-12-28] MEDS: NA CHLORIDE 0.9% 1,000 ML IV SCH ×2 (10:06→17:29)
[2017-12-28] MEDS: MORPHINE 4 MG/ML SYR IV PRN ×4 (10:07→23:04)
[2017-12-28] MEDS: ONDANSETRON 4 MG/2 ML VIAL IV PRN (10:07)
[2017-12-28] MEDS: METRONIDAZOLE 500mg IVPB 500 MG/100 ML BAG IV SCH ×3 (13:04→23:07)
[2017-12-29] MEDS: MORPHINE 4 MG/ML SYR IV PRN ×2 (03:33→07:48)
[2017-12-29] MEDS: NA CHLORIDE 0.9% 1,000 ML IV SCH ×2 (03:33→14:00)
[2017-12-29] MEDS ORDERED: Levofloxacin500mg IV 500 MG/100 ML BAG IV SCH (05:00)
[2017-12-29 05:01] LABS: Absolute Monocytes 0.5 K/uL (0.1-1.3); Absolute Neutrophil 3.3 K/uL (1.8-8.0); Basophils % 0.5 % (0-1.3); Eosinophils % 3.3 % (0-4.4); Hematocrit 40.1 % (39.6-49.0); MCH 29.1 pg (27.0-35.0); MCV 84.1 fL (80-100); MPV 9.4 fL (7.6-11.3); Monocytes % 8.3 % (3.3-12.3); RBC Red Blood Cell Count 4.77 M/uL (4.33-5.43)
[2017-12-29 05:04] LABS: Protime INR 1.13
[2017-12-29] MEDS: ONDANSETRON 4 MG/2 ML VIAL IV PRN (05:25)
[2017-12-29 05:29] LABS: ALT/SGPT 41 U/L (12-78); AST/SGOT 21 U/L (15-37); Albumin 3.1 g/dL (3.4-5.0); Alkaline Phosphatase 35 U/L (45-117); BUN Blood Urea Nitrogen 12 mg/dL (7-18); Bicarbonate 28 mmol/L (21-32); Bilirubin Total 0.4 mg/dL (0.2-1.0); Glucose Level 85 mg/dL (74-106); Potassium 4.4 mmol/L (3.5-5.1); Protein, Total 6.3 g/dL (6.4-8.2); Sodium Level 140 mmol/L (136-145)
[2017-12-29] MEDS: METRONIDAZOLE 500mg IVPB 500 MG/100 ML BAG IV SCH ×2 (05:31→11:53)
[2017-12-29] MEDS ORDERED: NEBIVOLOL HCL 5 MG TAB PO SCH (09:00)
[2017-12-29] MEDS ORDERED: RANITIDINE 150 MG TABLET PO SCH (09:00)
--- NOTE | 2017-12-29 15:50 | P.SSS ---
Patient History Date of Service: 12/29/17 Reason for admission: Abdominal pain History of Present Illness: Patient is a 47-year-old gentleman who presents to the hospital with abdominal pain. Patient was in the emergency room a few days ago with similar complaints. He was found have proctitis. He was started on IV antibiotics and discharged on oral antibiotics. However, since being at home in taking the oral antibiotics of patient's symptoms have not improved. He returned to the emergency room with severe abdominal pain. He has been dry heaving as well. In the emergency room, CT scan revealed proctitis. Patient will be admitted to the hospital for IV antibiotic therapy. Allergies Penicillins Allergy (Severe, Verified 12/28/17 11:51) Itching/Hives/Rash Home Medications: Ibuprofen 800 mg PO DAILY 12/28/17 Nebivolol HCl [Bystolic*] 2.5 mg PO DAILY 12/28/17 Ranitidine [Zantac*] 150 mg PO DAILY 12/28/17 levoFLOXacin [Levaquin] 500 mg PO DAILY #10 tab 12/29/17 metroNIDAZOLE [Flagyl] 500 mg PO Q8H 10 Days #30 tablet 12/29/17 - Past Medical/Surgical History Has patient received pneumonia vaccine in the past: No Diabetic: No -: PNEUMONIA -: STREP -: STAPH INFECTION ABD -: SINGLES 2012 -: KNEE SX - Family History Father -: Heart disease, Diabetes - Social History Smoking Status: Never smoker Alcohol use: No CD- Drugs: No Caffeine use: Yes Place of Residence: Home Review of Systems General: As per HPI Physical Examination - Vital Signs Temperature: 97.6 F Blood Pressure: 121/64 Pulse: 62 Respirations: 20 Pulse Ox (%): 98 - Physical Exam General: Alert, In no apparent distress HEENT: Atraumatic, PERRLA, Mucous membr. moist/pink, EOMI, Sclerae nonicteric Neck: Supple, 2+ carotid pulse no bruit, No LAD, Without JVD or thyroid abnormality Respiratory: Clear to auscultation bilaterally, Normal air movement Cardiovascular: Regular rate/rhythm, Normal S1 S2 Gastrointestinal: Normal bowel sounds, No tenderness Musculoskeletal: No tenderness Integumentary: No rashes Neurological: Normal gait, Normal speech, Normal strength at 5/5 x4 extr, Normal tone, Normal affect Lymphatics: No axilla or inguinal lymphadenopathy - Diagnosis (Problem(s)) (1) Proctitis Onset Date: 12/29/17 Current Visit: Yes Status: Resolved Treatment Summary: Overall during the hospital stay patient remained stable Pain was initially admitted to the hospital for abdominal pain nausea vomiting was found to have proctitis. Patient had failed outpatient therapy. Abdominal CT was showing improvement from prior CT. Patient however continue have intractable nausea vomiting and thus was admitted to the hospital. Patient had IV Zofran along with pain management and IV antibiotics. Patient had marked resolution in his symptoms and about 24 hr. Patient no longer had intractable nausea and vomiting and thus was switched over to p.o. diet. Patient tolerated his diet well without any problems or abdominal pain. Patient was then discharged home on p.o. antibiotics and was asked to follow up with GI outpatient. No further recommendations were noted at this time. GI was consulted here in the hospital however they were unavailable at this time and thus recommended the patient to be followed up outpatient since he has resolution of his symptoms. No further workup has been required at this time. Patient might need to be scheduled for outpatient colonoscopy with GI once his acute illness has resolved. Close patient and family member at bedside were notified about the discharge and agrees with the plan and thus patient was discharged home under stable condition. - Disposition Disposition: ROUTINE DISCHARGE Condition: GOOD Patient Discharge Instructions: Please f.u with PCP and GI in 1 to 2 week post discharge. New medication. Levofloxacin and Flagyl for 10 days Diet: [place] Activity: Ad shaq
--- NOTE | 2018-01-01 23:26 | CON ---
Date of Consultation: 12/29/2017 Reason For Consultation: Proctitis and abdominal pain. History Of Present Illness: The patient is a 47-year-old white male without significant past medical history, presents to the hospital with right lower quadrant pain x6 days, who was in the emergency r oom on Tuesday and returned yesterday and was finally admitted when CT scan revealed proctitis. The p atient states he feels much better since admission. He has had some diarrhea and nausea, but mainly yesterday as it seems to have resolved. His plan is to go home later today it appear. He did notice some 9/10 right lower quadrant pain. Yesterday prior to admission, CT scan revealed proctitis and maty de los santos was admitted to hospital. He denies any fevers, chills, night sweats, melena, hematochezia, cough, coffee-ground emesis, hematuria, hemoptysis, or hematemesis. Past Medical History: Insignificant, he reports. Allergies: PENICILLIN. Social History: No tobacco or alcohol. Family History: Remarkable for this condition as per chart review. Physical Examination: Vital Signs: He is afebrile. Stable. General: He is well-nourished, well-developed male, in no acute distress at 6 feet 2 inches, 235 reji nds, BMI of 30.2 kg/m2. HEENT: Normocephalic, atraumatic. Anicteric. Pupils equal, round, and reactive to light. Extraocu lar movements intact. Oropharynx is clear. Neck: Supple. No masses. Respirations: Clear to auscultation bilaterally. Cardiac: Regular rate and rhythm. No gallops or rubs. Abdomen: Positive bowel sounds. Soft, nondistended. Some mild right lower quadrant tenderness, but no peritoneal or Rosa sign. No hepatosplenomegaly. Extremities: No clubbing, cyanosis, or edema. 2+ pulses. Neuro: Alert and orient x3. Grossly nonfocal. 5/5 motor strength. Sensation intact to light touch . Data: The patient had a white count of 6.0, down from 6.7 yesterday; hemoglobin of 13.9, down from 1 5.3 yesterday; hematocrit 40.1; MCV of 84; platelet count of 192. Polys of 55%, lymphocytes 33%, mon ocytes 8%, eosinophils 3%. The patient has a PT of 13.3, INR of 1.1, PTT 32.3. Sodium 140, potassiu m 4.4, chloride 108, bicarb 20, BUN 12, creatinine 0.7, glucose 85, calcium 8.1. Total bilirubin 0.4 , AST 21, ALT 41, alkaline phosphatase 35, total protein 6.3, albumin 3.4. Lipase yesterday of 173. UA was negative, 1+ protein. CT of abdomen and pelvis revealed mild proctitis; overall, mild improvement since compared to study o n December 26, 2014, CT of abdomen and pelvis which revealed mild descending and rectosigmoid colon with 7 mm left renal calculi, diverticulum versus cyst is noted. Impression: Proctitis, now seems to be resolving. CT scan on December 26, 2017, revealed mild descendin g and rectosigmoid colon that is only limited to the rectum and may it be an infection and this seems to be resolving quickly over the past 3-7 days. Pain did reach to 9/10, but he is pain-free current ly and diarrhea seems to be resolving and nausea seems to be resolving as well. Recommendation: 1.Continue antibiotics. 2.Check stool studies. 3.Continue IV fluids. 4.Continue p.r.n. pain medications and antiemetics. 5.Colonoscopy as outpatient. ALBERT/EDITH Voice ID: [id number] Report ID: [id number]
== END 2017-12-29 18:37 | disposition home or self-care (01) | DRG 395 ==
LOC: ER 04:31 → ERHOLD 06:54 → 2ND 09:14
PROVIDERS: ADMIT Family Medicine; ATTEND Family Medicine
DX: K62.89 Other specified diseases of anus and rectum (principal); I10 Essential (primary) hypertension; R11.2 Nausea with vomiting, unspecified; F17.210 Nicotine dependence, cigarettes, uncomplicated; Z88.0 Allergy status to penicillin
CPT/HCPCS: 36415; 74177; 80048; 80053; 80076; 81003; 81015; 83690; 85025; 85610; 85730; 96361; 96365; 96368; 96375; 99285; J2405; J3010; J7030; Q9967

== ENCOUNTER 2018-02-01 15:16 | Emergency (ER) | payer OTHER ==
[2018-02-01] MEDS ORDERED: NA CHLORIDE 0.9% 1,000 ML ONE (15:48)
--- NOTE | 2018-02-01 15:53 | RAD REPORT ---
EXAM DESCRIPTION: US - Abdomen Exam Limited - 02/01/2018 3:45 pm CLINICAL HISTORY: ABD PAIN COMPARISON: No comparisons FINDINGS: The gallbladder demonstrates no gallstones. No pericholecystic fluid or gallbladder wall t hickening. The common bile duct is normal measuring 3 mm. The liver demonstrates no findings of intrahepatic biliary dilatation. IMPRESSION: Unremarkable examination.
[2018-02-01] MEDS ORDERED: MORPHINE 4 MG/ML SYR ONE (16:04)
[2018-02-01] MEDS ORDERED: ONDANSETRON 4 MG/2 ML VIAL ONE (16:05)
[2018-02-01 16:13] LABS: Absolute Lymphocytes (CBC) 2.5 K/uL (0.7-4.9); Absolute Monocytes 0.6 K/uL (0.1-1.3); Absolute Neutrophil 3.1 K/uL (1.8-8.0); Basophils % 0.5 % (0-1.3); Eosinophils % 1.7 % (0-4.4); Hematocrit 45.2 % (39.6-49.0); MCH 28.9 pg (27.0-35.0); MCV 83.3 fL (80-100); MPV 8.9 fL (7.6-11.3); RBC Red Blood Cell Count 5.43 M/uL (4.33-5.43)
[2018-02-01 16:16] LABS: ALT/SGPT 46 U/L (12-78); AST/SGOT 22 U/L (15-37); Albumin 3.7 g/dL (3.4-5.0); Alkaline Phosphatase 41 U/L (45-117); Amylase Level 35 U/L (25-115); BUN Blood Urea Nitrogen 13 mg/dL (7-18); Bicarbonate 27 mmol/L (21-32); Bilirubin Direct 0.1 mg/dL (0-0.2); Bilirubin Total 0.4 mg/dL (0.2-1.0); Glucose Level 109 mg/dL (74-106); Lipase 169 U/L (73-393); Potassium 3.8 mmol/L (3.5-5.1); Protein, Total 7.3 g/dL (6.4-8.2); Sodium Level 138 mmol/L (136-145)
--- NOTE | 2018-02-01 17:04 | RAD REPORT ---
EXAM DESCRIPTION: CT - Abdomen Pelvis W Contrast - 02/01/2018 4:36 pm CLINICAL HISTORY: Abdominal pain right-sided abdominal pain since yesterday COMPARISON: December 28, 2017 TECHNIQUE: Computed axial tomography of the abdomen pelvis was obtained. 100 cc Isovue-300 was admin istered intravenously. Oral contrast was not requested which limits evaluation of bowel. All CT scans are performed using dose optimization technique as appropriate and may include automated exposure control or mA/KV adjustment according to patient size. FINDINGS: The liver, spleen, pancreas, adrenal and right kidney are unremarkable. A 16 millimeter lo w-density structure within the left kidney containing a calcification may represent a caliceal divert iculum. There is no evidence of diverticulitis. The appendix is normal. A few loops of jejunum are mildly dilated. Small inguinal hernias contain fat IMPRESSION: Mild dilatation of a few loops of jejunum may indicate an enteritis
--- NOTE | 2018-02-01 17:44 | ER ---
Nurse's Notes [facility] Name: Sunday Pruitt Age: 47 yrs Sex: Male : 1970 Arrival Date: 02/01/2018 Time: 15:19 Bed 27 Private MD: Migel Roman Diagnosis: Enteritis;Generalized abdominal pain-right sided Presentation: 02/01 15:25 Presenting complaint: Patient states: Right-sided abd pain that began yesterday. Denies aa5 N/V, reports last BM was Tuesday. Pt states "I had diverticulitis about a month ago and it feels the same". 15:25 Transition of care: patient was not received from another setting of care. Onset of aa5 symptoms was January 2018. Risk Assessment: Do you want to hurt yourself or someone else? Patient reports no desire to harm self or others. Initial Sepsis Screen: Does the patient meet any 2 criteria? No. Patient's initial sepsis screen is negative. Does the patient have a suspected source of infection? No. Patient's initial sepsis screen is negative. Care prior to arrival: None. 15:25 Method Of Arrival: Ambulatory aa5 15:25 Acuity: MARILU 3 aa5 Historical: - Allergies: 15:28 PENICILLINS; aa5 - PMHx: 15:28 Hypertension; aa5 - PSHx: 15:28 Knee surgery; aa5 - Immunization history:: Adult Immunizations up to date. - Social history:: Smoking status: Patient uses tobacco products, smokes one-half pack cigarettes per day. - Ebola Screening: : No symptoms or risks identified at this time. Screenin:29 Abuse screen: Denies threats or abuse. Denies injuries from another. Nutritional mg2 screening: No deficits noted. Tuberculosis screening: No symptoms or risk factors identified. Fall Risk None identified. Assessment: 15:43 Reassessment:. General: Appears in no apparent distress. comfortable, Behavior is calm, mg2 cooperative. Pain: Complains of pain in right sided abdominal pain Pain does not radiate. Pain currently is 7 out of 10 on a pain scale. Quality of pain is described as aching, Pain began gradually. Neuro: Level of Consciousness is awake, alert, obeys commands, Oriented to person, place, time, situation. Cardiovascular: Capillary refill < 3 seconds Patient's skin is warm and dry. Respiratory: Airway is patent Respiratory effort is even, unlabored, Respiratory pattern is regular, symmetrical. GI: Abdomen is non-distended, Reports lower abdominal pain, upper abdominal pain. : No signs and/or symptoms were reported regarding the genitourinary system. EENT: No signs and/or symptoms were reported regarding the EENT system. Derm: Skin is intact, Skin is pink, warm \\T\\ dry. normal. Musculoskeletal: Circulation, motion, and sensation intact. 17:12 Reassessment: Patient appears in no apparent distress at this time. Patient and/or mg2 family updated on plan of care and expected duration. Pain level reassessed. Patient is alert, oriented x 3, equal unlabored respirations, skin warm/dry/pink. 17:53 Reassessment: Patient appears in no apparent distress at this time. Patient and/or mg2 family updated on plan of care and expected duration. Pain level reassessed. Patient is alert, oriented x 3, equal unlabored respirations, skin warm/dry/pink. 17:54 GI: Bowel sounds present X 4 quads. Abd is soft and non tender. mg2 Vital Signs: 15:27 BP 147 / 103; Pulse 73; Resp 18 S; Temp 97.4(TE); Pulse Ox 95% on R/A; Weight 103.42 kg aa5 (R); Height 6 ft. 2 in. (187.96 cm) (R); Pain 6/10; 17:11 BP 129 / 93; Pulse 66; Resp 18; Pulse Ox 100% on R/A; Pain 0/10; mg2 17:53 BP 123 / 70; Pulse 78; Resp 18; Pulse Ox 100% on R/A; Pain 0/10; mg2 15:27 Body Mass Index 29.27 (103.42 kg, 187.96 cm) aa5 ED Course: 15:19 Patient arrived in ED. mr 15:19 Migel Roman MD is Private Physician. mr 15:23 Margaret Rangel FNP-C [facility] kb 15:23 Arden Baumann MD is Attending Physician. kb 15:25 Arm band placed on Patient placed in an exam room, on a stretcher. aa5 15:29 Bhavin Stevens, BRENNA is Primary Nurse. mg2 15:30 Triage completed. aa5 15:39 No provider procedures requiring assistance completed. Inserted saline lock: 20 gauge mg2 in right antecubital area, using aseptic technique. Blood collected. 15:45 US Abdomen Limited In Process Unspecified. EDMS 15:45 Patient has correct armband on for positive identification. mg2 16:[address] 16:36 CT Abd/Pelvis - W/Contrast In Process Unspecified. EDMS 16:38 CT completed. Patient tolerated procedure well. Patient moved back from CT. nj 17:44 Migel Roman MD is Referral Physician. kb 17:53 IV discontinued, intact, bleeding controlled, No redness/swelling at site. Pressure mg2 dressing applied. Administered Medications: 16:03 Drug: Zofran 4 mg Route: IVP; Site: left antecubital; mg2 17:11 Follow up: Response: No adverse reaction; Marked relief of symptoms mg2 16:04 Drug: NS 0.9% 1000 ml Route: IV; Rate: 1000 ml; Site: left antecubital; mg2 17:52 Follow up: Response: No adverse reaction; IV Status: Completed infusion mg2 16:04 Drug: morphine 4 mg Route: IVP; Site: left antecubital; mg2 17:11 Follow up: Response: No adverse reaction; Marked relief of symptoms mg2 Outcome: 17:44 Discharge ordered by MD. kb 17:53 Discharged to home ambulatory. mg2 17:53 Condition: stable 17:53 Discharge instructions given to patient, Instructed on discharge instructions, follow up and referral plans. medication usage, Demonstrated understanding of instructions, follow-up care, medications, Prescriptions given X 1. 18:15 Patient left the ED. mg2 Signatures: Dispatcher [employer] EDMS Margaret Rangel, WELDING MACHINE OPERATOR RESISTANCE-C WELDING MACHINE OPERATOR RESISTANCE-CkNona Ye Shyla Duran Angeles Mchugh, RN RN aa5 Pérez Wayne Michele, BRENNA RN mg2 Corrections: (The following items were deleted from the chart) 16:38 16:36 CT completed. Patient tolerated procedure well [facility] 16:38 16:36 Patient moved back from [address]. [facility]
--- NOTE | 2018-02-01 17:44 | EDPHYS ---
Physician Documentation [facility] Name: Sunday Pruitt Age: 47 yrs Sex: Male : 1970 Arrival Date: 02/01/2018 Time: 15:19 Bed 27 Private MD: Migel Roman ED Physician Arden Baumann HPI: 02/01 17:00 This 47 yrs old Male presents to ER via Ambulatory with complaints of kb Abdominal Pain, Constipation. 17:00 The patient presents with abdominal pain in the right upper quadrant, right lower kb quadrant. Onset: The symptoms/episode began/occurred yesterday. The symptoms do not radiate. Associated signs and symptoms: Pertinent positives: constipation. The symptoms are described as constant. Modifying factors: The symptoms are alleviated by nothing, the symptoms are aggravated by pressure. Severity of pain: At its worst the pain was moderate in the emergency department the pain is unchanged. The patient has experienced similar episodes in the past, a few times, and the symptoms today are exactly the same, to when the patient was apparently diagnosed with diverticulitis. The patient has not recently seen a physician. Historical: - Allergies: 15:28 PENICILLINS; aa5 - PMHx: 15:28 Hypertension; aa5 - PSHx: 15:28 Knee surgery; aa5 - Immunization history:: Adult Immunizations up to date. - Social history:: Smoking status: Patient uses tobacco products, smokes one-half pack cigarettes per day. - Ebola Screening: : No symptoms or risks identified at this time. ROS: 16:59 Constitutional: Negative for fever, chills, and weight loss, Cardiovascular: Negative kb for chest pain, palpitations, and edema, Respiratory: Negative for shortness of breath, cough, wheezing, and pleuritic chest pain, Back: Negative for injury and pain, : Negative for injury, bleeding, discharge, and swelling, MS/Extremity: Negative for injury and deformity, Skin: Negative for injury, rash, and discoloration, Neuro: Negative for headache, weakness, numbness, tingling, and seizure. 16:59 Abdomen/GI: Positive for abdominal pain, constipation, Negative for nausea, vomiting, and diarrhea, abdominal cramps, abdominal distension, anorexia. Exam: 17:00 Constitutional: This is a well developed, well nourished patient who is awake, alert, kb and in no acute distress. Head/Face: Normocephalic, atraumatic. Chest/axilla: Normal chest wall appearance and motion. Nontender with no deformity. No lesions are appreciated. Cardiovascular: Regular rate and rhythm with a normal S1 and S2. No gallops, murmurs, or rubs. Normal PMI, no JVD. No pulse deficits. Respiratory: Lungs have equal breath sounds bilaterally, clear to auscultation and percussion. No rales, rhonchi or wheezes noted. No increased work of breathing, no retractions or nasal flaring. Back: No spinal tenderness. No costovertebral tenderness. Full range of motion. Skin: Warm, dry with normal turgor. Normal color with no rashes, no lesions, and no evidence of cellulitis. MS/ Extremity: Pulses equal, no cyanosis. Neurovascular intact. Full, normal range of motion. Neuro: Awake and alert, GCS 15, oriented to person, place, time, and situation. Cranial nerves II-XII grossly intact. Motor strength 5/5 in all extremities. Sensory grossly intact. Cerebellar exam normal. Normal gait. 17:00 Abdomen/GI: Inspection: abdomen appears normal, Bowel sounds: normal, in all quadrants, Palpation: soft, in all quadrants, moderate abdominal tenderness, in the right upper quadrant and right lower quadrant. Vital Signs: 15:27 BP 147 / 103; Pulse 73; Resp 18 S; Temp 97.4(TE); Pulse Ox 95% on R/A; Weight 103.42 kg aa5 (R); Height 6 ft. 2 in. (187.96 cm) (R); Pain 6/10; 17:11 BP 129 / 93; Pulse 66; Resp 18; Pulse Ox 100% on R/A; Pain 0/10; mg2 17:53 BP 123 / 70; Pulse 78; Resp 18; Pulse Ox 100% on R/A; Pain 0/10; mg2 15:27 Body Mass Index 29.27 (103.42 kg, 187.96 cm) aa5 MDM: 15:32 Patient medically screened. kb 16:59 Data reviewed: vital signs, nurses notes. Data interpreted: Pulse oximetry: on room air kb is 95 %. Interpretation: normal. 17:08 Counseling: I had a detailed discussion with the patient and/or guardian regarding: the kb historical points, exam findings, and any diagnostic results supporting the discharge/admit diagnosis, lab results, radiology results, the need for outpatient follow up, a family practitioner, a grocery store clerk, to return to the emergency department if symptoms worsen or persist or if there are any questions or concerns that arise at home. 02/01 15:33 Order name: Amylase, Serum; Complete Time: 16:18 kb 02/01 15:33 Order name: Basic Metabolic Panel; Complete Time: 16:18 kb 02/01 15:33 Order name: CBC with Diff; Complete Time: 16:22 kb 02/01 15:33 Order name: Hepatic Function; Complete Time: 16:18 kb 02/01 15:33 Order name: Lipase; Complete Time: 16:18 kb 02/01 17:43 Order name: Urine Dipstick--Ancillary (enter results) bd 02/01 15:33 Order name: IV Saline Lock; Complete Time: 15:39 kb 02/01 15:33 Order name: Labs collected and sent; Complete Time: 15:39 kb 02/01 15:33 Order name: Urine Dipstick-Ancillary (obtain specimen); Complete Time: 17:13 kb 02/01 15:33 Order name: US Abdomen Limited; Complete Time: 15:58 kb 02/01 16:18 Order name: CT Abd/Pelvis - W/Contrast; Complete Time: 17:07 kb Administered Medications: 16:03 Drug: Zofran 4 mg Route: IVP; Site: left antecubital; mg2 17:11 Follow up: Response: No adverse reaction; Marked relief of symptoms mg2 16:04 Drug: NS 0.9% 1000 ml Route: IV; Rate: 1000 ml; Site: left antecubital; mg2 17:52 Follow up: Response: No adverse reaction; IV Status: Completed infusion mg2 16:04 Drug: morphine 4 mg Route: IVP; Site: left antecubital; mg2 17:11 Follow up: Response: No adverse reaction; Marked relief of symptoms mg2 Disposition: 02/02 07:04 Co-signature as Attending Physician, Arden Baumann MD I agree with the assessment and walter plan of care. Disposition: 02/01/18 17:44 Discharged to Home. Impression: Enteritis, Generalized abdominal pain - right sided . - Condition is Stable. - Discharge Instructions: Abdominal Pain, Adult, [id number]. - Prescriptions for Bentyl 20 mg Oral Tablet - take 2 tablet by ORAL route every 6 hours As needed; 40 tablet. - Medication Reconciliation Form, Thank You Letter, Antibiotic Education, Prescription Opioid Use form. - Follow up: Emergency Department; When: As needed; Reason: Worsening of condition. Follow up: Migel Roman; When: 2 - 3 days; Reason: Recheck today's complaints, Continuance of care, Re-evaluation by your physician. Signatures: Dispatcher [employer] EDMargaret King, WANDA-C CLINICAL BIOCHEMIST-Arden Moreno MD MD cha Calderon, Audri, RN RN aa5 Bhavin Stevens, RN RN mg2 Corrections: (The following items were deleted from the chart) 02/01 18:15 17:44 02/01/2018 17:44 Discharged to Home. Impression: Enteritis; Generalized abdominal mg2 pain - right sided . Condition is Stable. Discharge Instructions: Abdominal Pain, Adult, [id number]. Prescriptions for Bentyl 20 mg Oral Tablet - take 2 tablet by ORAL route every 6 hours As needed; 40 tablet. and Forms are Medication Reconciliation Form, Thank You Letter, Antibiotic Education, Prescription Opioid Use. Follow up: Emergency Department; When: As needed; Reason: Worsening of condition. Follow up: Migel Roman; When: 2 - 3 days; Reason: Recheck today's complaints, Continuance of care, Re-evaluation by your physician. kb
[2018-02-01 20:25] LABS: Urine Blood TRACE (NEG); Urine Glucose NEGATIVE (NEG); Urine Protein NEGATIVE (NEG); Urine Specific Gravity 1.015 (1.005-1.030)
== END 2018-02-01 18:15 | disposition home or self-care (01) ==
LOC: ER 15:16
DX: K52.9 Noninfective gastroenteritis and colitis, unspecified (principal); I10 Essential (primary) hypertension; F17.210 Nicotine dependence, cigarettes, uncomplicated; Z88.0 Allergy status to penicillin
CPT/HCPCS: 36415; 74177; 76705; 80048; 80076; 81003; 82150; 83690; 85025; 96361; 96374; 96375; 99284; J2405; J7030; Q9967